=== PATIENT | male | born 1965 | race Caucasian/White ===

== ENCOUNTER 2019-11-14 01:46 | Outpatient (CLI) | payer BC, SELFPAY ==
[2019-11-14 19:19] LABS: SARS-CoV-2 RNA PCR Negative
== END 2019-11-14 01:47 | disposition home or self-care (01) ==
LOC: ANHCOVIDDT 01:47
PROVIDERS: PCP Family Medicine; Visit Provider Internal Medicine Gastroenterology
DX: Z01.812 Encounter for preprocedural laboratory examination (principal); Z20.828 Contact with and (suspected) exposure to other viral communicable diseases
CPT/HCPCS: 87635; C9803; U0003

== ENCOUNTER 2019-11-16 00:01 | Day surgery (SDC) | payer BC, SELFPAY ==
[2019-10-10 10:07] VITALS: BMI 28.8
[2019-11-09 15:05] VITALS: BMI 28.5
[2019-11-16 09:29] VITALS: BP 119/79; PULSE 68; RESP 18; TEMP 36.3; O2SAT 100
[2019-11-16] MEDS: LACTATED RINGERS 1,000 ML 150 ML IV CONT (09:40)
--- NOTE | 2019-11-16 09:58 | PM.HPGS ---
History of Present Illness History of Present Illness Consent: Risks, benefits, and alternatives have been discussed and questions answered. Patient agrees to proceed with procedure. Chief complaint: Neoplasm Screenng Narrative: Kirit Marino is a 54 year old male here for first screening colonoscopy Review of Systems Constitutional: Constitutional: Denies headache(s) and Denies weakness Eyes: Eyes: Denies blurry vision ENT: Reports Normal hearing present, Denies headache(s) and Denies neck pain Cardiovascular: Cardiovascular: Denies chest pain and Denies dyspnea Respiratory: Respiratory: Denies dyspnea Gastrointestinal: Gastrointestinal: Reports no additional gastrointestinal complaints Genitourinary: Genitourinary: Denies dysuria Musculoskeletal: Musculoskeletal: Denies neck pain Integumentary/Breasts: Skin/Breast: Denies dry skin Neurologic: Reports Normal hearing present, Denies headache(s) and Denies weakness Psychiatric: Psychiatric: Denies anxiety Endocrine: Endocrine: Denies change in body appearance Hematologic/Lymphatic: Hematologic/Lymphatic: Denies easy bleeding Allergic/Immunologic: Allergic/Immunologic: Denies urticaria [facility] Past Medical History Medical History (Updated 11/16/19 @ 09:58 by Vinny Costa MD) Asymptomatic microscopic hematuria Colon cancer screening Dyslipidemia Essential (primary) hypertension Family history of prostate cancer Hypertension Umbilical hernia without mention of obstruction or gangrene (~06/08/18) Surgical History Surgical History History of arthroscopy of right shoulder (~2010) Family History Family History Father Family history of coronary artery disease Other Hypertension Social History Social History Smoking status: Never smoker Second hand tobacco smoke exposure: No Alcohol intake: current Substance use: never Substance use type: does not use Living arrangements: alone Gender identity (if verbalized by the patient): Male Spiritual care concerns: No Meds Home Medications and Allergies Home Medications Medication Instructions Recorded Confirmed Type amlodipine 5 mg tablet 5 mg PO DAILY 08/15/19 11/16/19 History lisinopril 10 mg tablet See Rx Instructions .ROUTE 10/01/19 11/09/19 Rx .COMPLEX #90 tablet rosuvastatin 10 mg tablet See Rx Instructions .ROUTE 10/09/19 11/09/19 Rx .COMPLEX #90 tablet Allergies Allergy/AdvReac Type Severity Reaction Status Date / Time Penicillins Allergy Mild Unknown Verified 11/16/19 09:28 Vital Signs Vital Signs - 24 hr 11/16/19 09:29 Temperature 97.4 F L Pulse Rate 68 Respiratory Rate 18 Blood Pressure 119/79 Pulse Oximetry 100 Exam Const: General: comfortable and no acute distress HENMT: General nose exam: Normal nares present Eyes: General: appearance normal, both eyes and all related structures Neck: Neck: no JVD Resp: Auscultation: clear to auscultation bilaterally Cardio: Rate: regular rate Rhythm: regular rhythm GI: Inspection: non-distended GI Palp: Yes Soft to palpation Skin: General skin exam: normal color Neuro: General: gait normal Speech: normal speech Extrem: General: normal to inspection Psych: Mental Status: mental status grossly normal Assessment and Plan Assessment and plan (1) Colon cancer screening: Code(s): Z12.11 - Encounter for screening for malignant neoplasm of colon Status: Acute Assessment and Plan: will proceed with colonoscopy (2) Essential (primary) hypertension: Code(s): I10 - Essential (primary) hypertension Status: Acute
--- NOTE | 2019-11-16 10:00 | WPDANESEPPF ---
Anes - Initial Pre Proc Eval Procedure: Operation Date: 11/16/19 10:00 Proposed Procedures p Screening Colonoscopy - Vinny Costa MD Date/Time: 11/16/19 10:00 Surgeon: Vinny Costa MD Pre Op Diagnosis: Neoplasm Screenng Patient Data Age: 54 Gender: M Height: 5 ft 8 in Weight: 85.1 kg Last Vital Signs Temp 97.4 F L 11/16/19 09:29 Pulse 68 11/16/19 09:29 Resp 18 11/16/19 09:29 BP 119/79 11/16/19 09:29 Pulse Ox 100 11/16/19 09:29 Allergies Allergy/AdvReac Type Severity Reaction Status Date / Time Penicillins Allergy Mild Unknown Verified 11/16/19 09:28 Home Medications Medication Instructions Recorded Confirmed Type amlodipine 5 mg tablet 5 mg PO DAILY 08/15/19 11/16/19 History lisinopril 10 mg tablet See Rx Instructions .ROUTE 10/01/19 11/09/19 Rx .COMPLEX #90 tablet rosuvastatin 10 mg tablet See Rx Instructions .ROUTE 10/09/19 11/09/19 Rx .COMPLEX #90 tablet Patient hx anesthesia problems: none Family hx anesthesia problems: none PMFSH Past Medical History Medical History (Updated 11/16/19 @ 09:58 by Vinny Costa MD) Asymptomatic microscopic hematuria Colon cancer screening Dyslipidemia Essential (primary) hypertension Family history of prostate cancer Hypertension Umbilical hernia without mention of obstruction or gangrene (~06/08/18) Surgical History Surgical History History of arthroscopy of right shoulder (~2010) Family History Family History Father Family history of coronary artery disease Other Hypertension Social History Social History Smoking status: Never smoker Second hand tobacco smoke exposure: No Alcohol intake: current Substance use: never Substance use type: does not use Living arrangements: alone Gender identity (if verbalized by the patient): Male Spiritual care concerns: No Anes - Eval Final PreProcedure Day of Procedure 11/16/19 10:00 Patient weight: normal Heart: regular rate and rhythm Lungs: clear to auscultation Airway: Mallampati scale class II Neurological: alert and oriented Last oral intake: >/= 8 hours ASA classification: II Emergent: no Anesthetic plan: proceed Anesthesia type and monitoring: general GIVS and standard monitoring Informed Consent: The patient's anesthetic plan and its attendant risks and benefits were discussed with the patient/family/POA. Questions were solicited and answers provided to the satisfaction of the patient/family/POA.
[2019-11-16 10:18] VITALS: BP 108/61; PULSE 60; RESP 15; O2SAT 98
[2019-11-16 10:28] VITALS: BP 105/63; PULSE 54; RESP 20; O2SAT 100
[2019-11-16 10:38] VITALS: BP 111/68; PULSE 59; RESP 19; O2SAT 100
== END 2019-11-16 11:00 | disposition home or self-care (01) ==
PROVIDERS: PCP Family Medicine; Visit Provider Internal Medicine Gastroenterology
PROC: 0DJD8ZZ Inspection of Lower Intestinal Tract, Via Natural or Artificial Opening Endoscopic (ICD-10-PCS; CPT 45378; principal; 2019-11-16 10:00)
DX: Z12.11 Encounter for screening for malignant neoplasm of colon (principal); I10 Essential (primary) hypertension; E78.5 Hyperlipidemia, unspecified
CPT/HCPCS: 45378; J2704; J7120

== ENCOUNTER → 2020-05-15 16:55 | Outpatient (CLI) | payer BC, SELFPAY ==
--- NOTE | ~2020-05-15 | XR_ITS ---
EXAMINATION: XR thoracic spine 3V DATE: 05/15/2020 17:34 INDICATION: Back pain TECHNIQUE: AP, lateral and lateral swimmer's views of the thoracic spine were obtained. COMPARISON: 02/14/2012 FINDINGS: There is unchanged mild mid thoracic spondylosis. No fracture is identified. The vertebral body heights and alignment are normal. The visualized portions of the thorax are unremarkable. IMPRESSION: 1. Mild thoracic spondylosis without acute findings or significant interval change. Reviewed, dictated and finalized at location A. IMPRESSION: 1. Mild thoracic spondylosis without acute findings or significant interval ursula nge.
--- NOTE | ~2020-05-15 | XR_ITS ---
EXAMINATION: XR lumbar spine 2-3V DATE: 05/15/2020 17:34 INDICATION: Low back pain TECHNIQUE: Anteroposterior and lateral views of the lumbar spine, and cone-down lateral view of the l umbosacral junction were obtained. COMPARISON: 06/10/2015 FINDINGS: There are 4 mm of stable retrolisthesis of L5 on S1. There is unchanged mild loss of interv ertebral disc space height at L5-S1. The vertebral body heights are maintained. There is no fracture. Small degenerative osteophytes project from the anterior endplates of multiple vertebral bodies. IMPRESSION: 1. Mild lumbar spondylosis without acute findings or significant interval change. Reviewed, dictated and finalized at location A. IMPRESSION: 1. Mild lumbar spondylosis without acute findings or significant interval guillermo dionne
== END ==
PROVIDERS: PCP Family Medicine; Visit Provider Family Medicine
DX: M47.896 Other spondylosis, lumbar region (principal); M47.894 Other spondylosis, thoracic region
CPT/HCPCS: 72072; 72100